=== PATIENT | male | born 1995 | race Caucasian/White ===

== ENCOUNTER 2021-08-29 23:22 | Inpatient (IN) ==
[2021-08-29 23:39] VITALS: BMI 26.6
[2021-08-29] MEDS ORDERED: COMPAZINE INJ IVP ONE (23:47)
[2021-08-29] MEDS ORDERED: COMPAZINE INJ ONE (23:48)
[2021-08-29 23:53] LABS: ABG BASE EXCESS 3.3 mmol/L (-2.0-2.0); ABG HCO3 27.8 mmol/L (22-26)
--- NOTE | 2021-08-29 23:58 | DR.DING ---
HPI Time Seen Time Seen by Provider: 08/29/21 23:53 PCP Primary Care Physician: NFD Complaint Chief Complaint:: PT BROUGHT IN BY [facility]. PT ADMITTED TO SNORTING HEROIN. STATES SHE FOUND PT AROUND APPROX 2215 SITTING UP IN BED AND "HE WAS BLUE". STATED CPR AND CALLED 911. [facility] GAVE NARCAN 8MG INTRANASAL. PT COVERED IN VOMIT, STATING "I CAN'T BREATHE" Source History Provided: Patient and EMS Mode of Arrival Mode of Arrival: EMS Timing Onset of Chief Complaint: 08/29/21 PMH PMH Past Medical History: No Past Surgical History: No Family History History of Family Medical Conditions: No Social History Type of Tobacco Use: VAPE Alcohol Use: Occasionally Do you use any recreational Drugs:: Yes (HEROIN) Infectious screening Have you traveled outside the country in the last 6 months?: No Isolation: Standard PE Vital signs Vitals: Temperature 99.2 F Pulse Rate 119 Respiratory Rate 41 Blood Pressure 126/78 O2 Sat by Pulse Oximetry 91 ROR Labs Reviewed Result Diagrams: 08/30/21 04:45 08/30/21 04:45 Laboratory: 08/30/21 00:47 Sputum - Expectorated Sputum - Final WBC 19.9 X10^3/uL (3.6-10.0) H 08/29/21 23:54 RBC 5.83 X10^6/uL (4.7-6.0) 08/29/21 23:54 Hgb 17.7 g/dL (13.5-18.0) 08/29/21 23:54 Hct 51.3 % (42.0-54.0) 08/29/21 23:54 MCV 88.0 fL (80.0-100.0) 08/29/21 23:54 MCH 30.3 pg (27.0-34.0) 08/29/21 23:54 MCHC 34.4 g/dL (33.0-35.0) 08/29/21 23:54 RDW 12.9 % (11.6-16.5) 08/29/21 23:54 Plt Count 312 X10^3/uL (150.0-450.0) 08/29/21 23:54 MPV 8.5 fL (7.4-11.0) 08/29/21 23:54 Neut % (Auto) 86.3 % (42.0-75.0) H 08/29/21 23:54 Lymph % (Auto) 6.7 % (21.0-51.0) L 08/29/21 23:54 [place] % (Auto) 6.3 % (0.0-13.0) 08/29/21 23:54 Eos % (Auto) 0.5 % (0.9-2.9) L 08/29/21 23:54 Baso % (Auto) 0.2 % (0.2-1.0) 08/29/21 23:54 Neut # (Auto) 17.2 x10^3/uL (2.2-4.8) H 08/29/21 23:54 Lymph # (Auto) 1.3 X10^3/uL (1.3-2.9) 08/29/21 23:54 [place] # (Auto) 1.3 x10^3/uL (0.3-0.8) H 08/29/21 23:54 Eos # (Auto) 0.1 x10^3/uL (0.0-0.2) 08/29/21 23:54 Baso # (Auto) 0.0 X10^3/uL (0.0-0.1) 08/29/21 23:54 Absolute Nucleated RBC 0.0 /100WBC 08/29/21 23:54 Sample Site Lrad 08/30/21 00:33 ABG pH 7.430 (7.35-7.45) 08/30/21 00:33 ABG pCO2 46.0 mmHg (35.0-45.0) H 08/30/21 00:33 ABG pO2 113.0 mmHg (80.0-100.0) H 08/30/21 00:33 ABG HCO3 30.5 mmol/L (22-26) H* 08/30/21 00:33 ABG O2 Saturation 99.0 % (90-100) 08/30/21 00:33 ABG Base Excess 5.3 mmol/L (-2.0-2.0) H 08/30/21 00:33 Samir Test Pos 08/30/21 00:33 A-a Gradient 543.0 mmHg 08/30/21 00:33 FiO2 100.0 08/30/21 00:33 Blood Gas Comments Susy abg well 08/30/21 00:33 Sodium 138 mmol/L (136-145) 08/29/21 23:54 Corrected Sodium TNP 08/29/21 23:54 Potassium 3.5 mmol/L (3.5-5.1) 08/29/21 23:54 Chloride 100 mmol/L (98-107) 08/29/21 23:54 Carbon Dioxide 29.6 mmol/L (21-32) 08/29/21 23:54 BUN 12 mg/dL (7-18) 08/29/21 23:54 Creatinine 1.15 mg/dL (0.70-1.30) 08/29/21 23:54 Est GFR (MDRD) Af Amer > 60 (>60) 08/29/21 23:54 Est GFR (MDRD) Non-Af > 60 (>60) 08/29/21 23:54 Glucose 106 mg/dL (65-99) H 08/29/21 23:54 Calcium 8.5 mg/dL (8.5-10.1) 08/29/21 23:54 Corrected Calcium TNP 08/29/21 23:54 Total Bilirubin 0.70 mg/dL (0.2-1.0) 08/29/21 23:54 AST 34 Units/L (15-37) 08/29/21 23:54 ALT 36 Units/L (12-78) 08/29/21 23:54 Alkaline Phosphatase 75 Units/L (46-116) 08/29/21 23:54 Creatine Kinase 535 Units/L (39-308) H 08/29/21 23:54 CK-MB (CK-2) 3.0 ng/mL (0-4.0) 08/29/21 23:54 CK/CKMB % Calc 0.6 % (<4) 08/29/21 23:54 Troponin I High Sens 15.7 ng/L (4.0-60.0) 08/29/21 23:54 Total Protein 6.4 g/dL (6.4-8.2) 08/29/21 23:54 Albumin 3.4 g/dL (3.4-5.0) 08/29/21 23:54 Globulin 3.0 g/dL (2.5-4.5) 08/29/21 23:54 Albumin/Globulin Ratio 1.1 Ratio (1.1-2.1) 08/29/21 23:54 SARS-CoV-2 (PCR) Negative (NEGATIVE) 08/30/21 01:09 Influenza Type A (PCR) Negative (NEGATIVE) 08/30/21 01:09 Influenza Type B (PCR) Negative (NEGATIVE) 08/30/21 01:09 RSV (PCR) Negative (NEGATIVE) 08/30/21 01:09 Opioid Opioid Risk Tool Total: 0 Total Score Risk Category: Low Risk Copyright: Bishnu MAAYA predicting aberrant behaviors Discharge Plan Diagnosis Discharge Problem: Acute drug overdose, Pneumonia, Hypoxia Discharge Plan Patient Disposition: ADMITTED INPATIENT Condition: Stable Discharge Comment: PT ADMITTED TO ICU 3 Orders to Discharge Patient Discharge Orders: Transfer (Routine); Ordered 08/30/21 Ordered By: JOE MONTEMAYOR
[2021-08-30] LABS: ABG ALLEN TEST POS
[2021-08-30] LABS: BASOPHILS % (AUTO) 0.2 % (0.2-1.0); EOSINOPHILS # (AUTO) 0.1 x10^3/uL (0.0-0.2); EOSINOPHILS % (AUTO) 0.5 % (0.9-2.9); HEMATOCRIT 51.3 % (42.0-54.0); HEMOGLOBIN 17.7 g/dL (13.5-18.0); LYMPHOCYTES # (AUTO) 1.3 X10^3/uL (1.3-2.9); LYMPHOCYTES % (AUTO) 6.7 % (21.0-51.0); MEAN CORPUSCULAR HEMOGLOBIN 30.3 pg (27.0-34.0); MEAN CORPUSCULAR HGB CONC 34.4 g/dL (33.0-35.0); MEAN PLATELET VOLUME 8.5 fL (7.4-11.0); MONOCYTES # (AUTO) 1.3 x10^3/uL (0.3-0.8); MONOCYTES % (AUTO) 6.3 % (0.0-13.0); NEUTROPHILS # (AUTO) 17.2 x10^3/uL (2.2-4.8); NEUTROPHILS % (AUTO) 86.3 % (42.0-75.0); RED BLOOD COUNT 5.83 X10^6/uL (4.7-6.0); RED CELL DISTRIBUTION WIDTH 12.9 % (11.6-16.5); WHITE BLOOD COUNT 19.9 X10^3/uL (3.6-10.0)
--- NOTE | 2021-08-30 00:11 | RAD ---
HISTORYOVERDOSESTUDYCHEST, 1 VIEWCOMPARISONNone.TECHNIQUEA single frontal view of the chest was obtained.FINDINGSThere are multiple EKG leads and wires seen overlying the patient. The heart is normal in size. There is diffuse hazy alveolar infiltrates throughout both lungs consistent with a diffuse alveolar pneumonia. There is no effusion. There is no pneumothorax. The osseous structures are intact.IMPRESSIONSevere diffuse alveolar pneumonia, worse within the right perihilar upper lobe region.Electronically signed by: Brittney Godinez (Aug 30, 2021 00:09:31)
[2021-08-30 00:35] LABS: ABG BASE EXCESS 5.3 mmol/L (-2.0-2.0)
[2021-08-30 00:36] LABS: ABG ALLEN TEST POS; ABG HCO3 30.5 mmol/L (22-26)
[2021-08-30 01:00] LABS: ALANINE AMINOTRANSFERASE 36 Units/L (12-78); ALBUMIN 3.4 g/dL (3.4-5.0); ALKALINE PHOSPHATASE 75 Units/L (46-116); ASPARTATE AMINO TRANSFERASE 34 Units/L (15-37); BLOOD UREA NITROGEN 12 mg/dL (7-18); CALCIUM 8.5 mg/dL (8.5-10.1); CARBON DIOXIDE 29.6 mmol/L (21-32); CHLORIDE 100 mmol/L (98-107); CKMB % 0.6 % (<4); CREATINE KINASE 535 Units/L (39-308); CREATININE 1.15 mg/dL (0.70-1.30); SODIUM 138 mmol/L (136-145); TOTAL PROTEIN 6.4 g/dL (6.4-8.2); eGFR NON BLACK RACES > 60 (>60)
[2021-08-30] MEDS ORDERED: NS 1,000 ML IV 1,000 ML ONE (01:56)
[2021-08-30] MEDS ORDERED: NS 1,000 ML IV 1,000 ML IV ONE (02:01)
[2021-08-30 02:24] LABS: BILIRUBIN,URINE NEGATIVE (NEGATIVE); BLOOD/HEMOGLOBIN,URINE NEGATIVE (NEGATIVE); GLUCOSE, URINE 4+ (NEGATIVE); KETONES,URINE 2+ (NEGATIVE); LEUKOCYTE ESTERASE ,URINE 1+ (NEGATIVE); NITRITES,URINE NEGATIVE (NEGATIVE); PROTEIN,URINE 2+ (NEGATIVE); UROBILINOGEN,URINE NORMAL (NORMAL)
[2021-08-30 02:45] LABS: APPEARANCE,URINE SLIGHTLY HAZY (CLEAR); COLOR,URINE YELLOW (YELLOW)
[2021-08-30 02:46] LABS: BACTERIA,URINE TRACE /HPF (NEGATIVE); GRANULAR CASTS,URINE FEW /LPF (NEGATIVE); HYALINE CASTS, URINE MODERATE /LPF (NEGATIVE); RBC,URINE 0-2 /HPF (0-3); SQUAMOUS EPITHELIAL CELL,UR FEW /HPF (NEGATIVE)
[2021-08-30 05:02] LABS: BASOPHILS % (AUTO) 0.2 % (0.2-1.0); EOSINOPHILS % (AUTO) 0.1 % (0.9-2.9); HEMATOCRIT 47.4 % (42.0-54.0); HEMOGLOBIN 16.7 g/dL (13.5-18.0); LYMPHOCYTES # (AUTO) 0.7 X10^3/uL (1.3-2.9); LYMPHOCYTES % (AUTO) 3.2 % (21.0-51.0); MEAN CORPUSCULAR HEMOGLOBIN 30.8 pg (27.0-34.0); MEAN CORPUSCULAR HGB CONC 35.2 g/dL (33.0-35.0); MEAN CORPUSCULAR VOLUME 87.5 fL (80.0-100.0); MEAN PLATELET VOLUME 8.7 fL (7.4-11.0); MONOCYTES # (AUTO) 1.8 x10^3/uL (0.3-0.8); MONOCYTES % (AUTO) 8.2 % (0.0-13.0); NEUTROPHILS # (AUTO) 19.4 x10^3/uL (2.2-4.8); NEUTROPHILS % (AUTO) 88.3 % (42.0-75.0); RED BLOOD COUNT 5.42 X10^6/uL (4.7-6.0); RED CELL DISTRIBUTION WIDTH 13.1 % (11.6-16.5)
[2021-08-30 05:19] LABS: ALANINE AMINOTRANSFERASE 32 Units/L (12-78); ALBUMIN 3.3 g/dL (3.4-5.0); ALKALINE PHOSPHATASE 69 Units/L (46-116); ASPARTATE AMINO TRANSFERASE 33 Units/L (15-37); BLOOD UREA NITROGEN 12 mg/dL (7-18); CALCIUM 8.1 mg/dL (8.5-10.1); CHLORIDE 104 mmol/L (98-107); COR CA(FOR HYPOALB) 8.7 mg/dL (8.5-10.1); CREATININE 0.94 mg/dL (0.70-1.30); SODIUM 137 mmol/L (136-145); eGFR NON BLACK RACES > 60 (>60)
[2021-08-30] MEDS: CLEOCIN 600 MG IV PREMIX 600 MG/50 ML BAG IV SCH ×3 (05:57→21:30)
[2021-08-30] MEDS: NS 1,000 ML IV 1,000 ML IV SCH ×2 (05:58→16:23)
[2021-08-30 06:01] LABS: BAND NEUTROPHILS % 9 % (0-10); PLATELET MORPHOLOGY COMMENT NORMAL (NORMAL)
[2021-08-30] MEDS: ZOSYN VIAL 3.375 GRAMS 3.375 G in NS 100 ML IV 100 ML IV SCH ×3 (06:59→22:21)
[2021-08-30] MEDS: PROVENTIL NEB TX 0.083% 2.5MG/ 3ML NEB SCH ×4 (08:50→21:22)
[2021-08-30] MEDS: VSL#3 PO SCH (09:05)
--- NOTE | 2021-08-30 15:28 | DR.H&P ---
H&P History & Physical for Day of: H&P Date: 08/30/21 Chief Complaint Chief Complaint: Dyspnea Allergies Allergies Allergy/AdvReac Type Severity Reaction Status Date / Time No Known Drug Allergies Allergy Verified 08/29/21 23:46 History of Present Illness History of Present Illness: This is a 26-year-old white male who was brought to the emergency department via [facility] just after midnight. The patient admitted to snorting heroin. His states she found the patient approximately around 2215 last night. He is sitting up in bed and he was blue. started CPR and called 911. Blankenship Fermin he gave Narcan 8 mg intranasal. The patient was noticed to be covered in vomit and stated that he could not breathe. Also patient got to the [facility] emergency department. I found him to be hypoxic chest x-ray was done and found to have severe alveolar pneumonia mostly in the right upper lobe of the lung. He was started on oxygen and IV Zosyn and clindamycin as well. Labs were drawn and showed him to have a large white blood cell count around 20,000. I was called for admission to the ICU. I agree that he needed so he was subsequently admitted to ICU 3 upstairs. Past Surgical History Surgical History: Unknown Social History Does patient currently use any type of tobacco product: Yes Have you used tobacco products in the last 12 months: Yes Type of Tobacco Use: VAPE Alcohol Use: Occasionally Drug Use: Other Medications Home Medications: No Known Drug Allergies Allergy (Verified 08/29/21 23:46) CONTINUE taking the following medications pantoprazole 40 mg tablet,delayed release 1 tab PO DAILY 08/30/21 [History] Labs Result Diagrams: 08/30/21 04:45 08/30/21 04:45 Labs: 08/30/21 00:47 Sputum - Expectorated Sputum - Final Laboratory WBC 22.0 X10^3/uL (3.6-10.0) H 08/30/21 04:45 RBC 5.42 X10^6/uL (4.7-6.0) 08/30/21 04:45 Hgb 16.7 g/dL (13.5-18.0) 08/30/21 04:45 Hct 47.4 % (42.0-54.0) 08/30/21 04:45 MCV 87.5 fL (80.0-100.0) 08/30/21 04:45 MCH 30.8 pg (27.0-34.0) 08/30/21 04:45 MCHC 35.2 g/dL (33.0-35.0) H 08/30/21 04:45 RDW 13.1 % (11.6-16.5) 08/30/21 04:45 Plt Count 259 X10^3/uL (150.0-450.0) 08/30/21 04:45 Plt Count Comment Adequate (ADEQUATE) 08/30/21 04:45 MPV 8.7 fL (7.4-11.0) 08/30/21 04:45 Neut % (Auto) 88.3 % (42.0-75.0) H 08/30/21 04:45 Lymph % (Auto) 3.2 % (21.0-51.0) L 08/30/21 04:45 [place] % (Auto) 8.2 % (0.0-13.0) 08/30/21 04:45 Eos % (Auto) 0.1 % (0.9-2.9) L 08/30/21 04:45 Baso % (Auto) 0.2 % (0.2-1.0) 08/30/21 04:45 Neut # (Auto) 19.4 x10^3/uL (2.2-4.8) H 08/30/21 04:45 Lymph # (Auto) 0.7 X10^3/uL (1.3-2.9) L 08/30/21 04:45 [place] # (Auto) 1.8 x10^3/uL (0.3-0.8) H 08/30/21 04:45 Eos # (Auto) 0.0 x10^3/uL (0.0-0.2) 08/30/21 04:45 Baso # (Auto) 0.0 X10^3/uL (0.0-0.1) 08/30/21 04:45 Absolute Nucleated RBC 0.0 /100WBC 08/30/21 04:45 Total Counted 100 08/30/21 04:45 Neutrophils % (Manual) 78 % (39-76) H 08/30/21 04:45 Band Neutrophils % 9 % (0-10) 08/30/21 04:45 Lymphocytes % (Manual) 5 % (13-43) L 08/30/21 04:45 Monocytes % (Manual) 8 % (4-9) 08/30/21 04:45 Plt Morphology Comment Normal (NORMAL) 08/30/21 04:45 RBC Morphology Normal (NORMAL) 08/30/21 04:45 Sample Site Lrad 08/30/21 00:33 ABG pH 7.430 (7.35-7.45) 08/30/21 00:33 ABG pCO2 46.0 mmHg (35.0-45.0) H 08/30/21 00:33 ABG pO2 113.0 mmHg (80.0-100.0) H 08/30/21 00:33 ABG HCO3 30.5 mmol/L (22-26) H* 08/30/21 00:33 ABG O2 Saturation 99.0 % (90-100) 08/30/21 00:33 ABG Base Excess 5.3 mmol/L (-2.0-2.0) H 08/30/21 00:33 Samir Test Pos 08/30/21 00:33 A-a Gradient 543.0 mmHg 08/30/21 00:33 FiO2 100.0 08/30/21 00:33 Blood Gas Comments Susy abg well 08/30/21 00:33 Sodium 137 mmol/L (136-145) 08/30/21 04:45 Corrected Sodium TNP 08/30/21 04:45 Potassium 4.2 mmol/L (3.5-5.1) 08/30/21 04:45 Chloride 104 mmol/L (98-107) 08/30/21 04:45 Carbon Dioxide 26.0 mmol/L (21-32) 08/30/21 04:45 BUN 12 mg/dL (7-18) 08/30/21 04:45 Creatinine 0.94 mg/dL (0.70-1.30) 08/30/21 04:45 Est GFR (MDRD) Af Amer > 60 (>60) 08/30/21 04:45 Est GFR (MDRD) Non-Af > 60 (>60) 08/30/21 04:45 Glucose 96 mg/dL (65-99) 08/30/21 04:45 Calcium 8.1 mg/dL (8.5-10.1) L 08/30/21 04:45 Corrected Calcium 8.7 mg/dL (8.5-10.1) 08/30/21 04:45 Total Bilirubin 1.00 mg/dL (0.2-1.0) 08/30/21 04:45 AST 33 Units/L (15-37) 08/30/21 04:45 ALT 32 Units/L (12-78) 08/30/21 04:45 Alkaline Phosphatase 69 Units/L (46-116) 08/30/21 04:45 Creatine Kinase 709 Units/L (39-308) H 08/30/21 09:37 CK-MB (CK-2) 3.0 ng/mL (0-4.0) 08/29/21 23:54 CK/CKMB % Calc 0.6 % (<4) 08/29/21 23:54 Troponin I High Sens 15.7 ng/L (4.0-60.0) 08/29/21 23:54 Total Protein 6.0 g/dL (6.4-8.2) L 08/30/21 04:45 Albumin 3.3 g/dL (3.4-5.0) L 08/30/21 04:45 Globulin 2.7 g/dL (2.5-4.5) 08/30/21 04:45 Albumin/Globulin Ratio 1.2 Ratio (1.1-2.1) 08/30/21 04:45 Specimen Type Clean catch urine 08/30/21 02:11 Urine Color Yellow (YELLOW) 08/30/21 02:11 Urine Appearance Slightly hazy (CLEAR) 08/30/21 02:11 Urine pH 6.0 (5.0 - 8.0) 08/30/21 02:11 Ur Specific [place] 1.020 (1.000-1.030) 08/30/21 02:11 Urine Protein 2+ (NEGATIVE) 08/30/21 02:11 Urine Glucose (UA) 4+ (NEGATIVE) 08/30/21 02:11 Urine Ketones 2+ (NEGATIVE) 08/30/21 02:11 Urine Blood Negative (NEGATIVE) 08/30/21 02:11 Urine Nitrite Negative (NEGATIVE) 08/30/21 02:11 Urine Bilirubin Negative (NEGATIVE) 08/30/21 02:11 Urine Urobilinogen Normal (NORMAL) 08/30/21 02:11 Ur Leukocyte Esterase 1+ (NEGATIVE) 08/30/21 02:11 Urine RBC 0-2 /HPF (0-3) 08/30/21 02:11 Urine WBC 0-2 /HPF (0-5) 08/30/21 02:11 Ur Squamous Epith Cells Few /HPF (NEGATIVE) 08/30/21 02:11 Urine Bacteria Trace /HPF (NEGATIVE) 08/30/21 02:11 Hyaline Casts Moderate /LPF (NEGATIVE) 08/30/21 02:11 Granular Casts Few /LPF (NEGATIVE) 08/30/21 02:11 Urine Mucus Numerous /HPF (NEGATIVE) 08/30/21 02:11 Ur Culture Indicated? No/not indicated 08/30/21 02:11 Urine Opiates Screen Negative (NEG=<300) 08/30/21 02:11 Urine Methadone Screen Negative (NEG=<300) 08/30/21 02:11 Ur Barbiturates Screen Negative (NEG=<200) 08/30/21 02:11 Ur Phencyclidine Scrn Negative (NEG=<25) 08/30/21 02:11 Ur Amphetamines Screen Negative (NEG=<1000) 08/30/21 02:11 U Benzodiazepines Scrn Negative (NEG=<200) 08/30/21 02:11 Urine Cocaine Screen Negative (NEG=<300) 08/30/21 02:11 U Marijuana (THC) Screen Negative (NEG=<50) 08/30/21 02:11 SARS-CoV-2 (PCR) Negative (NEGATIVE) 08/30/21 01:09 Influenza Type A (PCR) Negative (NEGATIVE) 08/30/21 01:09 Influenza Type B (PCR) Negative (NEGATIVE) 08/30/21 01:09 RSV (PCR) Negative (NEGATIVE) 08/30/21 01:09 Review of Systems Constitutional: Fever Eyes: No Symptoms Reported ENT: No Symptoms Reported Respiratory: Shortness of Breath Cardiovascular: No Symptoms Reported Gastrointestinal: Nausea Genitourinary: No Symptoms Reported Musculoskeletal: No Symptoms Reported Skin: No Symptoms Reported Neurological: No Symptoms Reported Physical Exam Vital Signs: Temperature 99.3 F Pulse Rate 95 Respiratory Rate 34 Blood Pressure 121/56 O2 Sat by Pulse Oximetry 92 Oriented: Normal, Time, Person and Place Eyes: Normal Ear: Normal Nose: Normal Throat: Normal Respiratory: Rhonchi Throughout Cardiovascular: Normal : Normal Auscultation: Bowel Sounds: Normal Palpation: Normal Tenderness: Normal Skin: Normal Musculoskeletal: Normal Psychiatric: Normal Mood Description: Calm Affect: Normal Speech Pattern: Clear and Appropriate Assessment/Plan (1) Pneumonia: Status: Acute Plan: Continue neb treatments, IV Zosyn and IV clindamycin at this time. Repeat CBC in a.m. (2) Hypoxia: Status: Acute (3) Acute drug overdose: Status: Acute Plan: Continue supplemental O2. (4) Rhabdomyolysis: Status: Acute Plan: Continue IV hydration recheck CK this morning and again tomorrow morning. Review H&P Reviewed: Yes Patient was examined?: Yes
[2021-08-30] MEDS: MAALOX or MYLANTA PO PRN (17:07)
[2021-08-30] MEDS: PEPCID TAB 20 MG PO PRN (17:07)
[2021-08-31] MEDS: NS 1,000 ML IV 1,000 ML IV SCH ×5 (04:44→21:01)
[2021-08-31 04:55] LABS: BASOPHILS % (AUTO) 0.4 % (0.2-1.0); EOSINOPHILS # (AUTO) 0.1 x10^3/uL (0.0-0.2); EOSINOPHILS % (AUTO) 0.9 % (0.9-2.9); HEMATOCRIT 42.7 % (42.0-54.0); LYMPHOCYTES # (AUTO) 1.5 X10^3/uL (1.3-2.9); LYMPHOCYTES % (AUTO) 12.6 % (21.0-51.0); MEAN CORPUSCULAR HGB CONC 35.1 g/dL (33.0-35.0); MEAN CORPUSCULAR VOLUME 88.3 fL (80.0-100.0); MEAN PLATELET VOLUME 9.1 fL (7.4-11.0); MONOCYTES # (AUTO) 1.2 x10^3/uL (0.3-0.8); MONOCYTES % (AUTO) 9.8 % (0.0-13.0); NEUTROPHILS # (AUTO) 9.1 x10^3/uL (2.2-4.8); NEUTROPHILS % (AUTO) 76.3 % (42.0-75.0); RED BLOOD COUNT 4.84 X10^6/uL (4.7-6.0); RED CELL DISTRIBUTION WIDTH 12.9 % (11.6-16.5); WHITE BLOOD COUNT 11.9 X10^3/uL (3.6-10.0)
[2021-08-31 05:02] LABS: ALANINE AMINOTRANSFERASE 31 Units/L (12-78); ALBUMIN 2.8 g/dL (3.4-5.0); ALKALINE PHOSPHATASE 55 Units/L (46-116); ASPARTATE AMINO TRANSFERASE 35 Units/L (15-37); BLOOD UREA NITROGEN 8 mg/dL (7-18); CALCIUM 7.8 mg/dL (8.5-10.1); CARBON DIOXIDE 24.6 mmol/L (21-32); CHLORIDE 108 mmol/L (98-107); COR CA(FOR HYPOALB) 8.8 mg/dL (8.5-10.1); COR NA(FOR HYPERGLY) 139 mmol/L (136-145); CREATINE KINASE 587 Units/L (39-308); CREATININE 0.84 mg/dL (0.70-1.30); SODIUM 139 mmol/L (136-145); TOTAL PROTEIN 5.7 g/dL (6.4-8.2); eGFR NON BLACK RACES > 60 (>60)
[2021-08-31] MEDS: CLEOCIN 600 MG IV PREMIX 600 MG/50 ML BAG IV SCH ×3 (05:19→21:02)
[2021-08-31 05:26] LABS: ABG ALLEN TEST POS; ABG BASE EXCESS 1.5 mmol/L (-2.0-2.0); ABG HCO3 24.6 mmol/L (22-26)
--- NOTE | 2021-08-31 06:01 | RAD ---
HISTORYFollow up aspiration pneumonia, hypoxiaSTUDYChest AP [id number]/27/2022FINDINGSHear t size is normal. [place] are normal. Bilateral predominantly upper lobe alveolar pneumonia is again identified right greater than left. There has been some improvement particularly on the left. Lower lung michelle appear clear. No pleural effusion is identified. Bony thorax is unremarkable.IMPRESSIONBilateral upper lobe alveolar pneumonia right greater than left with some mild improvement since the prior examination particularly on the leftElectronically signed by: HAILY WALLER (Aug 31, 2021 05:59:44)
[2021-08-31] MEDS: ZOSYN VIAL 3.375 GRAMS 3.375 G in NS 100 ML IV 100 ML IV SCH ×3 (06:16→21:01)
[2021-08-31] MEDS: MAALOX or MYLANTA PO PRN ×2 (08:39→21:00)
[2021-08-31] MEDS: VSL#3 PO SCH (08:41)
[2021-08-31] MEDS ORDERED: MILK OF MAGNESIA PO PRN (08:46)
--- NOTE | 2021-08-31 09:36 | RAD ---
HISTORYRESPIRATORY DISTRESS.brASPIRATION PNEUMONIA, HYPOXIA, DRUG ODSTUDYCHEST, 1 [id number]/28/2022FINDINGSBilatera l upper lobe pneumonia not significantly changed.No pleural effusion or pneumothorax.Heart size is normal.Bones are unremarkable. [EKG leads are noted. ]IMPRESSION1. Unchanged pneumoniaElectronically signed by: Gab Martin (Aug 31, 2021 09:35:02)
[2021-08-31] MEDS: PROVENTIL NEB TX 0.083% 2.5MG/ 3ML NEB SCH ×4 (09:40→20:25)
[2021-08-31] MEDS: PEPCID TAB 20 MG PO PRN (16:00)
--- NOTE | 2021-08-31 19:35 | PCM.PROG ---
Progress Note Progress Note for Day of Date of Exam: 08/31/21 Subjective Subjective: The patient reports he is feeling better this morning. He still is coughing up copious amounts of purulent sputum. His O2 sat is 90% on room air this morning. His respirations are mid 30s to 44. However his white blood cell count has come down to 11,900 down from 23,000+ yesterday. He has no new complaints this morning. Past Medical Family Social History Allergies: Allergies No Known Drug Allergies Allergy (Verified 08/29/21 23:46) Review of Systems ROS: No change since H&P Vital Signs and I&O's Vital Signs: Temperature 98.8 F Pulse Rate 97 Respiratory Rate 18 Blood Pressure 137/64 O2 Sat by Pulse Oximetry 96 Intake and Output: Intake & Output 08/29/21 08/30/21 08/31/21 09/01/21 11:59 11:59 11:59 11:59 Intake Total 3585 / 3585 1680 / 1680 Output Total 501 / 501 400 / 400 950 / 950 Balance -501 / -501 3185 / 3185 730 / 730 Physical Exam Oriented: Normal, Time, Person and Place Eyes: Normal Ear: Normal Nose: Normal Throat: Normal Respiratory: Right, Left, Superior and Rhonchi Cardiovascular: Normal : Normal Auscultation: Bowel Sounds: Normal Tenderness: Normal Skin: Normal Musculoskeletal: Normal Psychiatric: Normal Mood Description: Calm Affect: Normal Speech Pattern: Clear and Appropriate Laboratory and Diagnostics Result Diagrams: 08/31/21 04:00 08/31/21 04:00 Labs: 08/30/21 00:47 Sputum - Expectorated Sputum Sputum Culture - Preliminary 08/30/21 00:47 Sputum - Expectorated Sputum - Final Laboratory WBC 11.9 X10^3/uL (3.6-10.0) H D 08/31/21 04:00 RBC 4.84 X10^6/uL (4.7-6.0) 08/31/21 04:00 Hgb 15.0 g/dL (13.5-18.0) 08/31/21 04:00 Hct 42.7 % (42.0-54.0) 08/31/21 04:00 MCV 88.3 fL (80.0-100.0) 08/31/21 04:00 MCH 31.0 pg (27.0-34.0) 08/31/21 04:00 MCHC 35.1 g/dL (33.0-35.0) H 08/31/21 04:00 RDW 12.9 % (11.6-16.5) 08/31/21 04:00 Plt Count 220 X10^3/uL (150.0-450.0) 08/31/21 04:00 Plt Count Comment Adequate (ADEQUATE) 08/30/21 04:45 MPV 9.1 fL (7.4-11.0) 08/31/21 04:00 Neut % (Auto) 76.3 % (42.0-75.0) H 08/31/21 04:00 Lymph % (Auto) 12.6 % (21.0-51.0) L 08/31/21 04:00 Lane % (Auto) 9.8 % (0.0-13.0) 08/31/21 04:00 Eos % (Auto) 0.9 % (0.9-2.9) 08/31/21 04:00 Baso % (Auto) 0.4 % (0.2-1.0) 08/31/21 04:00 Neut # (Auto) 9.1 x10^3/uL (2.2-4.8) H 08/31/21 04:00 Lymph # (Auto) 1.5 X10^3/uL (1.3-2.9) 08/31/21 04:00 Lane # (Auto) 1.2 x10^3/uL (0.3-0.8) H 08/31/21 04:00 Eos # (Auto) 0.1 x10^3/uL (0.0-0.2) 08/31/21 04:00 Baso # (Auto) 0.0 X10^3/uL (0.0-0.1) 08/31/21 04:00 Absolute Nucleated RBC 0.0 /100WBC 08/31/21 04:00 Total Counted 100 08/30/21 04:45 Neutrophils % (Manual) 78 % (39-76) H 08/30/21 04:45 Band Neutrophils % 9 % (0-10) 08/30/21 04:45 Lymphocytes % (Manual) 5 % (13-43) L 08/30/21 04:45 Monocytes % (Manual) 8 % (4-9) 08/30/21 04:45 Plt Morphology Comment Normal (NORMAL) 08/30/21 04:45 RBC Morphology Normal (NORMAL) 08/30/21 04:45 Sample Site Lr 08/31/21 05:00 ABG pH 7.480 (7.35-7.45) H 08/31/21 05:00 ABG pCO2 33.0 mmHg (35.0-45.0) L 08/31/21 05:00 ABG pO2 53.0 mmHg (80.0-100.0) L 08/31/21 05:00 ABG HCO3 24.6 mmol/L (22-26) 08/31/21 05:00 ABG O2 Saturation 90.0 % (90-100) 08/31/21 05:00 ABG Base Excess 1.5 mmol/L (-2.0-2.0) 08/31/21 05:00 Samir Test Pos 08/31/21 05:00 A-a Gradient 55.0 mmHg 08/31/21 05:00 FiO2 21.0 08/31/21 05:00 Blood Gas Comments Susy well 08/31/21 05:00 Sodium 139 mmol/L (136-145) 08/31/21 04:00 Corrected Sodium 139 mmol/L (136-145) 08/31/21 04:00 Potassium 3.9 mmol/L (3.5-5.1) 08/31/21 04:00 Chloride 108 mmol/L (98-107) H 08/31/21 04:00 Carbon Dioxide 24.6 mmol/L (21-32) 08/31/21 04:00 BUN 8 mg/dL (7-18) 08/31/21 04:00 Creatinine 0.84 mg/dL (0.70-1.30) 08/31/21 04:00 Est GFR (MDRD) Af Amer > 60 (>60) 08/31/21 04:00 Est GFR (MDRD) Non-Af > 60 (>60) 08/31/21 04:00 Glucose 115 mg/dL (65-99) H 08/31/21 04:00 Calcium 7.8 mg/dL (8.5-10.1) L 08/31/21 04:00 Corrected Calcium 8.8 mg/dL (8.5-10.1) 08/31/21 04:00 Total Bilirubin 0.70 mg/dL (0.2-1.0) 08/31/21 04:00 AST 35 Units/L (15-37) 08/31/21 04:00 ALT 31 Units/L (12-78) 08/31/21 04:00 Alkaline Phosphatase 55 Units/L (46-116) 08/31/21 04:00 Creatine Kinase 587 Units/L (39-308) H 08/31/21 04:00 CK-MB (CK-2) 3.0 ng/mL (0-4.0) 08/29/21 23:54 CK/CKMB % Calc 0.6 % (<4) 08/29/21 23:54 Troponin I High Sens 15.7 ng/L (4.0-60.0) 08/29/21 23:54 Total Protein 5.7 g/dL (6.4-8.2) L 08/31/21 04:00 Albumin 2.8 g/dL (3.4-5.0) L 08/31/21 04:00 Globulin 2.9 g/dL (2.5-4.5) 08/31/21 04:00 Albumin/Globulin Ratio 1.0 Ratio (1.1-2.1) L 08/31/21 04:00 Specimen Type Clean catch urine 08/30/21 02:11 Urine Color Yellow (YELLOW) 08/30/21 02:11 Urine Appearance Slightly hazy (CLEAR) 08/30/21 02:11 Urine pH 6.0 (5.0 - 8.0) 08/30/21 02:11 Ur Specific [place] 1.020 (1.000-1.030) 08/30/21 02:11 Urine Protein 2+ (NEGATIVE) 08/30/21 02:11 Urine Glucose (UA) 4+ (NEGATIVE) 08/30/21 02:11 Urine Ketones 2+ (NEGATIVE) 08/30/21 02:11 Urine Blood Negative (NEGATIVE) 08/30/21 02:11 Urine Nitrite Negative (NEGATIVE) 08/30/21 02:11 Urine Bilirubin Negative (NEGATIVE) 08/30/21 02:11 Urine Urobilinogen Normal (NORMAL) 08/30/21 02:11 Ur Leukocyte Esterase 1+ (NEGATIVE) 08/30/21 02:11 Urine RBC 0-2 /HPF (0-3) 08/30/21 02:11 Urine WBC 0-2 /HPF (0-5) 08/30/21 02:11 Ur Squamous Epith Cells Few /HPF (NEGATIVE) 08/30/21 02:11 Urine Bacteria Trace /HPF (NEGATIVE) 08/30/21 02:11 Hyaline Casts Moderate /LPF (NEGATIVE) 08/30/21 02:11 Granular Casts Few /LPF (NEGATIVE) 08/30/21 02:11 Urine Mucus Numerous /HPF (NEGATIVE) 08/30/21 02:11 Ur Culture Indicated? No/not indicated 08/30/21 02:11 Urine Opiates Screen Negative (NEG=<300) 08/30/21 02:11 Urine Methadone Screen Negative (NEG=<300) 08/30/21 02:11 Ur Barbiturates Screen Negative (NEG=<200) 08/30/21 02:11 Ur Phencyclidine Scrn Negative (NEG=<25) 08/30/21 02:11 Ur Amphetamines Screen Negative (NEG=<1000) 08/30/21 02:11 U Benzodiazepines Scrn Negative (NEG=<200) 08/30/21 02:11 Urine Cocaine Screen Negative (NEG=<300) 08/30/21 02:11 U Marijuana (THC) Screen Negative (NEG=<50) 08/30/21 02:11 SARS-CoV-2 (PCR) Negative (NEGATIVE) 08/30/21 01:09 Influenza Type A (PCR) Negative (NEGATIVE) 08/30/21 01:09 Influenza Type B (PCR) Negative (NEGATIVE) 08/30/21 01:09 RSV (PCR) Negative (NEGATIVE) 08/30/21 01:09 Plan (1) Pneumonia: Status: Acute Plan: Continue neb treatments, IV Zosyn and IV clindamycin at this time. Repeat CBC in a.m. follow-up with cultures when available. (2) Hypoxia: Status: Acute Plan: Continue supplemental O2 via nasal cannula. (3) Acute drug overdose: Status: Acute Plan: Continue supplemental O2. (4) Rhabdomyolysis: Status: Acute Narrative Support Text: Rhabdomyolysis has improved since yesterday. Continue IV hydration. Plan: Continue IV hydration recheck CK this morning and again tomorrow morning.
[2021-09-01] MEDS ORDERED: MOTRIN TAB 800 MG PO PRN (02:15)
[2021-09-01 04:49] LABS: BASOPHILS # (AUTO) 0.1 X10^3/uL (0.0-0.1); BASOPHILS % (AUTO) 0.6 % (0.2-1.0); EOSINOPHILS # (AUTO) 0.2 x10^3/uL (0.0-0.2); EOSINOPHILS % (AUTO) 1.5 % (0.9-2.9); HEMATOCRIT 41.6 % (42.0-54.0); HEMOGLOBIN 14.7 g/dL (13.5-18.0); LYMPHOCYTES # (AUTO) 1.4 X10^3/uL (1.3-2.9); MEAN CORPUSCULAR HEMOGLOBIN 30.8 pg (27.0-34.0); MEAN CORPUSCULAR HGB CONC 35.4 g/dL (33.0-35.0); MEAN CORPUSCULAR VOLUME 87.1 fL (80.0-100.0); MEAN PLATELET VOLUME 9.2 fL (7.4-11.0); MONOCYTES # (AUTO) 1.2 x10^3/uL (0.3-0.8); NEUTROPHILS % (AUTO) 75.9 % (42.0-75.0); RED BLOOD COUNT 4.78 X10^6/uL (4.7-6.0); RED CELL DISTRIBUTION WIDTH 13.5 % (11.6-16.5); WHITE BLOOD COUNT 11.8 X10^3/uL (3.6-10.0)
[2021-09-01 04:54] LABS: ALANINE AMINOTRANSFERASE 28 Units/L (12-78); ALBUMIN 2.8 g/dL (3.4-5.0); ALKALINE PHOSPHATASE 57 Units/L (46-116); ASPARTATE AMINO TRANSFERASE 18 Units/L (15-37); BLOOD UREA NITROGEN 4 mg/dL (7-18); CALCIUM 7.9 mg/dL (8.5-10.1); CARBON DIOXIDE 23.4 mmol/L (21-32); CHLORIDE 108 mmol/L (98-107); COR CA(FOR HYPOALB) 8.9 mg/dL (8.5-10.1); COR NA(FOR HYPERGLY) 138 mmol/L (136-145); CREATINE KINASE 205 Units/L (39-308); CREATININE 0.85 mg/dL (0.70-1.30); SODIUM 138 mmol/L (136-145); TOTAL PROTEIN 5.9 g/dL (6.4-8.2); eGFR NON BLACK RACES > 60 (>60)
[2021-09-01] MEDS: CLEOCIN 600 MG IV PREMIX 600 MG/50 ML BAG IV SCH (05:16)
[2021-09-01] MEDS: ZOSYN VIAL 3.375 GRAMS 3.375 G in NS 100 ML IV 100 ML IV SCH (05:16)
[2021-09-01] MEDS: NS 1,000 ML IV 1,000 ML IV SCH (05:16)
[2021-09-01] MEDS: PEPCID TAB 20 MG PO PRN (05:40)
--- NOTE | 2021-09-01 06:08 | RAD ---
HISTORYFollow-up pneumoniaSTUDYChest AP [id number]/29/2022FINDINGSHear t size is normal. Ana Maria are normal. Bilateral upper lobe pneumonia is present and unchanged considering a difference in film technique. The lower lung michelle remain clear. No pleural effusions are identified. Bony thorax is unremarkable.IMPRESSIONNo change bilateral upper lobe pneumonia considering difference in film technique.Electronically signed by: HAILY WALLER (Sep 01, 2021 06:06:21)
[2021-09-01] MEDS: PROVENTIL NEB TX 0.083% 2.5MG/ 3ML NEB SCH (08:15)
[2021-09-01 08:49] VITALS: BP 129/73
--- NOTE | 2021-09-03 12:06 | PCM.DCPLAN ---
DISCHARGE SUMMARY Admission Diagnoses (1) Pneumonia: Status: Acute (2) Hypoxia: Status: Acute (3) Acute drug overdose: Status: Acute (4) Rhabdomyolysis: Status: Acute Discharge Diagnoses Discharge Diagnosis: 1. Aspiration pneumonia 2. Hypoxia 3. Rhabdomyolysis 4. Drug overdose Discharge Medications Discharge Medications: Home Medication List pantoprazole 40 mg tablet,delayed release 1 tab PO DAILY 08/30/21 [History] albuterol sulfate 90 mcg/actuation aerosol inhaler 2 puff inhalation Q6H PRN Shortness Of Breath #1 g 09/01/21 [Rx] amoxicillin 875 mg-potassium clavulanate 125 mg tablet 1 tab PO BID 7 days #14 tabs 09/01/21 [Rx] clindamycin HCl 300 mg capsule 300 mg PO Q8H 7 days #21 caps 09/01/21 [Rx] ibuprofen 800 mg tablet 800 mg PO Q6HR PRN Pain #30 tabs 09/01/21 [Rx] Prescriptions: leslie DEWITT,FABIAN albuterol sulfate RENATE,FABIAN amoxicillin-pot clavulanate RENATE,FABIAN clindamycin HCl RENATE,FABIAN Hospital Course Vital Signs: Temperature 98.9 F Pulse Rate 80 Respiratory Rate 18 Blood Pressure 129/73 O2 Sat by Pulse Oximetry 95 Latest Lab Results: Laboratory Last Values WBC 11.8 X10^3/uL (3.6-10.0) H 09/01/21 03:35 RBC 4.78 X10^6/uL (4.7-6.0) 09/01/21 03:35 Hgb 14.7 g/dL (13.5-18.0) 09/01/21 03:35 Hct 41.6 % (42.0-54.0) L 09/01/21 03:35 MCV 87.1 fL (80.0-100.0) 09/01/21 03:35 MCH 30.8 pg (27.0-34.0) 09/01/21 03:35 MCHC 35.4 g/dL (33.0-35.0) H 09/01/21 03:35 RDW 13.5 % (11.6-16.5) 09/01/21 03:35 Plt Count 220 X10^3/uL (150.0-450.0) 09/01/21 03:35 Plt Count Comment Adequate (ADEQUATE) 08/30/21 04:45 MPV 9.2 fL (7.4-11.0) 09/01/21 03:35 Neut % (Auto) 75.9 % (42.0-75.0) H 09/01/21 03:35 Lymph % (Auto) 12.0 % (21.0-51.0) L 09/01/21 03:35 [place] % (Auto) 10.0 % (0.0-13.0) 09/01/21 03:35 Eos % (Auto) 1.5 % (0.9-2.9) 09/01/21 03:35 Baso % (Auto) 0.6 % (0.2-1.0) 09/01/21 03:35 Neut # (Auto) 9.0 x10^3/uL (2.2-4.8) H 09/01/21 03:35 Lymph # (Auto) 1.4 X10^3/uL (1.3-2.9) 09/01/21 03:35 [place] # (Auto) 1.2 x10^3/uL (0.3-0.8) H 09/01/21 03:35 Eos # (Auto) 0.2 x10^3/uL (0.0-0.2) 09/01/21 03:35 Baso # (Auto) 0.1 X10^3/uL (0.0-0.1) 09/01/21 03:35 Absolute Nucleated RBC 0.0 /100WBC 09/01/21 03:35 Total Counted 100 08/30/21 04:45 Neutrophils % (Manual) 78 % (39-76) H 08/30/21 04:45 Band Neutrophils % 9 % (0-10) 08/30/21 04:45 Lymphocytes % (Manual) 5 % (13-43) L 08/30/21 04:45 Monocytes % (Manual) 8 % (4-9) 08/30/21 04:45 Plt Morphology Comment Normal (NORMAL) 08/30/21 04:45 RBC Morphology Normal (NORMAL) 08/30/21 04:45 Sample Site Lr 08/31/21 05:00 ABG pH 7.480 (7.35-7.45) H 08/31/21 05:00 ABG pCO2 33.0 mmHg (35.0-45.0) L 08/31/21 05:00 ABG pO2 53.0 mmHg (80.0-100.0) L 08/31/21 05:00 ABG HCO3 24.6 mmol/L (22-26) 08/31/21 05:00 ABG O2 Saturation 90.0 % (90-100) 08/31/21 05:00 ABG Base Excess 1.5 mmol/L (-2.0-2.0) 08/31/21 05:00 Samir Test Pos 08/31/21 05:00 A-a Gradient 55.0 mmHg 08/31/21 05:00 FiO2 21.0 08/31/21 05:00 Blood Gas Comments Susy well sw 08/31/21 05:00 Sodium 138 mmol/L (136-145) 09/01/21 03:35 Corrected Sodium 138 mmol/L (136-145) 09/01/21 03:35 Potassium 4.1 mmol/L (3.5-5.1) 09/01/21 03:35 Chloride 108 mmol/L (98-107) H 09/01/21 03:35 Carbon Dioxide 23.4 mmol/L (21-32) 09/01/21 03:35 BUN 4 mg/dL (7-18) L 09/01/21 03:35 Creatinine 0.85 mg/dL (0.70-1.30) 09/01/21 03:35 Est GFR (MDRD) Af Amer > 60 (>60) 09/01/21 03:35 Est GFR (MDRD) Non-Af > 60 (>60) 09/01/21 03:35 Glucose 111 mg/dL (65-99) H 09/01/21 03:35 Calcium 7.9 mg/dL (8.5-10.1) L 09/01/21 03:35 Corrected Calcium 8.9 mg/dL (8.5-10.1) 09/01/21 03:35 Total Bilirubin 0.70 mg/dL (0.2-1.0) 09/01/21 03:35 AST 18 Units/L (15-37) 09/01/21 03:35 ALT 28 Units/L (12-78) 09/01/21 03:35 Alkaline Phosphatase 57 Units/L (46-116) 09/01/21 03:35 Creatine Kinase 205 Units/L (39-308) 09/01/21 03:35 CK-MB (CK-2) 3.0 ng/mL (0-4.0) 08/29/21 23:54 CK/CKMB % Calc 0.6 % (<4) 08/29/21 23:54 Troponin I High Sens 15.7 ng/L (4.0-60.0) 08/29/21 23:54 Total Protein 5.9 g/dL (6.4-8.2) L 09/01/21 03:35 Albumin 2.8 g/dL (3.4-5.0) L 09/01/21 03:35 Globulin 3.1 g/dL (2.5-4.5) 09/01/21 03:35 Albumin/Globulin Ratio 0.9 Ratio (1.1-2.1) L 09/01/21 03:35 Specimen Type Clean catch urine 08/30/21 02:11 Urine Color Yellow (YELLOW) 08/30/21 02:11 Urine Appearance Slightly hazy (CLEAR) 08/30/21 02:11 Urine pH 6.0 (5.0 - 8.0) 08/30/21 02:11 Ur Specific [place] 1.020 (1.000-1.030) 08/30/21 02:11 Urine Protein 2+ (NEGATIVE) 08/30/21 02:11 Urine Glucose (UA) 4+ (NEGATIVE) 08/30/21 02:11 Urine Ketones 2+ (NEGATIVE) 08/30/21 02:11 Urine Blood Negative (NEGATIVE) 08/30/21 02:11 Urine Nitrite Negative (NEGATIVE) 08/30/21 02:11 Urine Bilirubin Negative (NEGATIVE) 08/30/21 02:11 Urine Urobilinogen Normal (NORMAL) 08/30/21 02:11 Ur Leukocyte Esterase 1+ (NEGATIVE) 08/30/21 02:11 Urine RBC 0-2 /HPF (0-3) 08/30/21 02:11 Urine WBC 0-2 /HPF (0-5) 08/30/21 02:11 Ur Squamous Epith Cells Few /HPF (NEGATIVE) 08/30/21 02:11 Urine Bacteria Trace /HPF (NEGATIVE) 08/30/21 02:11 Hyaline Casts Moderate /LPF (NEGATIVE) 08/30/21 02:11 Granular Casts Few /LPF (NEGATIVE) 08/30/21 02:11 Urine Mucus Numerous /HPF (NEGATIVE) 08/30/21 02:11 Ur Culture Indicated? No/not indicated 08/30/21 02:11 Urine Opiates Screen Negative (NEG=<300) 08/30/21 02:11 Urine Methadone Screen Negative (NEG=<300) 08/30/21 02:11 Ur Barbiturates Screen Negative (NEG=<200) 08/30/21 02:11 Ur Phencyclidine Scrn Negative (NEG=<25) 08/30/21 02:11 Ur Amphetamines Screen Negative (NEG=<1000) 08/30/21 02:11 U Benzodiazepines Scrn Negative (NEG=<200) 08/30/21 02:11 Urine Cocaine Screen Negative (NEG=<300) 08/30/21 02:11 U Marijuana (THC) Screen Negative (NEG=<50) 08/30/21 02:11 SARS-CoV-2 (PCR) Negative (NEGATIVE) 08/30/21 01:09 Influenza Type A (PCR) Negative (NEGATIVE) 08/30/21 01:09 Influenza Type B (PCR) Negative (NEGATIVE) 08/30/21 01:09 RSV (PCR) Negative (NEGATIVE) 08/30/21 01:09 Hospital Course: Following admission the patient was looking better the following morning. He was alert and awake and responding to questions appropriately. He remained hypoxic with O2 sat in the low 90s but looking at him he looked like he was doing quite well. He did report coughing up copious amounts of purulent sputum at that time so we will continue him on IV antibiotics and by the following day he was looking much improved compared to the previous day. He reported his coughing has slowed down is not coughing up as much sputum. His white blood cell count was now 11,800 which is nearly normal from when he came in. Chest x- ray has showed some improvement since admission and overall his labs look good. Currently this morning he was satting 95% on room air so we will go ahead and change him to p.o. antibiotics and albuterol inhaler and discharged home. We wi ll have him follow-up with his primary care physician in [place], [place] for hospital follow-up to see these come along getting over this pneumonia.
== END 2021-09-01 09:10 | disposition home or self-care (01) | DRG 194 ==
LOC: SUPCPDRO → ER 23:22 → ICU 08-30 02:10
PROVIDERS: ADMIT Family Medicine; ATTEND Family Medicine
DX: T40.1X1A Poisoning by heroin, accidental (unintentional), initial encounter; M62.82 Rhabdomyolysis; Z20.822 Contact with and (suspected) exposure to COVID-19; J18.8 Other pneumonia, unspecified organism; R94.31 Abnormal electrocardiogram [ECG] [EKG]; R09.02 Hypoxemia